=== PATIENT | female | born 1995 | race Asian ===

== ENCOUNTER 2017-08-28 21:08 | Inpatient (IN) | payer OTHER ==
[~2017-08-28] VITALS: Ht 154.9 cm; Wt 65.4 kg
[2017-08-28] MEDS ORDERED: PNV1TABL12 PO (21:16)
[2017-08-28] MEDS ORDERED: LACTATED RINGER'S 1,000 ML IV PRN (21:51)
[2017-08-28] MEDS ORDERED: CARBOPROST 250 MCG INJ IM PRN (22:00)
[2017-08-28] MEDS ORDERED: BUTORPHANOL 2 MG INJ IV PRN (22:00)
[2017-08-28] MEDS ORDERED: AMPICILLIN 2 GM/NS (PMX) 100 ML IV ONE (22:00)
[2017-08-28] MEDS ORDERED: IBUPROFEN 600 MG TAB PO PRN (22:00)
[2017-08-28] MEDS ORDERED: LIDOCAINE 1% (MPF) 30 ML INJ INJ PRN (22:00)
[2017-08-28] MEDS ORDERED: METHYLERGONOVINE 0.2 MG INJ IM PRN (22:00)
[2017-08-28] MEDS ORDERED: HYDROCODONE/APAP (5/325) TAB PO PRN (22:00)
[2017-08-28] MEDS ORDERED: OXYTOCIN 30 UNITS/LR 500 ML IV SCH (22:00)
[2017-08-28] MEDS ORDERED: OXYTOCIN 30 UNITS/LR 500 ML IV PRN (22:00)
[2017-08-28] MEDS ORDERED: MISOPROSTOL 200 MCG TAB PR PRN (22:00)
[2017-08-28 22:01] VITALS: Ht 154.9 cm; Wt 65.4 kg
[2017-08-28 22:12] VITALS: BP 127/74; PULSE 97; RESP 18
[2017-08-28] MEDS: LACTATED RINGER'S 1,000 ML IV SCH (22:57)
[2017-08-28 23:29] LABS: BASOPHILS % 0.4 % (0.0-2.0); EOSINOPHILS # 0.1 10^3/ul (0.0-0.5); EOSINOPHILS % 1.3 % (0.0-7.0); HEMATOCRIT 36.8 % (37.0-47.0); HEMOGLOBIN 12.6 g/dl (12.0-16.0); LYMPHOCYTES # 2.4 10^3/ul (0.8-2.9); LYMPHOCYTES % 25.7 % (15.0-51.0); MEAN CORPUSCULAR HEMOGLOBIN 28.9 pg (29.0-33.0); MEAN CORPUSCULAR HGB CONC 34.2 g/dl (32.0-37.0); MEAN CORPUSCULAR VOLUME 84.4 fl (82.0-101.0); MEAN PLATELET VOLUME 11.7 fl (7.4-10.4); MONOCYTE # 0.7 10^3/ul (0.3-0.9); MONOCYTES % 7.1 % (0.0-11.0); NEUTROPHIL # 6.2 10^3/ul (1.6-7.5); NEUTROPHILS % 65.1 % (39.0-77.0); PLATELET COUNT 174 10^3/UL (140-415); RED BLOOD COUNT 4.36 10^6/ul (4.20-5.40); RED CELL DISTRIBUTION WIDTH 12.5 % (11.5-14.5); WHITE BLOOD COUNT 9.5 10^3/ul (4.8-10.8)
[2017-08-29 00:08] LABS: INR 0.82; PROTIME 11.3 Sec (11.9-14.9); PT RATIO 0.9
[2017-08-29 00:09] LABS: PARTIAL THROMBOPLASTIN TIME 30.3 Sec (25.0-35.0)
[2017-08-29] MEDS: AMPICILLIN 1 GM/NS (PMX) 50 ML IV SCH ×6 (03:00→22:00)
[2017-08-29] MEDS: LACTATED RINGER'S 1,000 ML IV SCH ×4 (09:09→20:59)
[2017-08-29] MEDS ORDERED: OXYTOCIN 30 UNITS/LR 500 ML IV SCH (09:30)
[2017-08-29] MEDS ORDERED: FENTAnyl 2MCG/ML-ROPIV 0.2% 100 ML ONE (10:28)
--- NOTE | 2017-08-29 12:01 | HP ---
Date/Time of Note Date/Time of Note DATE: 08/29/17 TIME: 11:55 OB - History Hx of Present Free Text/Dictation 22 y.o at 40w4d present to triage with srom occured at 1740 on 08/28/17 VE 1cm/0// / confirmed srom uc irregular GBS pos ampicillin admitted for pitocin augmentation. Chief Complaint: srom Estimated Due Date: Aug 25, 2017 : 1 Para: 0 Spontaneous : 0 Therapeutic : 0 Care: Good Care Ultrasounds: Normal mid trimester US Obstetrical Complications: None Medical Complications: None Past Family/Social History * Past Medical, Surgical, Family and Obstetric Histories reviewed from chart. Blood Type: O+ Rubella: not immune RPR/VDRL: Negative GBS Status: Positive HBsAG: Negative OB Admission Exam Vital Signs Vital Signs Vital Signs Date Time Temp Pulse Resp B/P Pulse Ox O2 Delivery O2 Flow Rate FiO2 08/28/17 22:12 97.8 97 18 127/74 Room Air Physical Exam HEENT: WNL Heart: Rhythm Normal Lungs: Clear, Equal Abdomen: WNL Extremities: Normal Reflexes: Normal Cervical Dilatation: 1cm Effacement: Other Station: Other Membranes: Ruptured Amniotic Fluid: Thin Meconium Heart Rate: 140's Accelerations: Accelerations Present Decelerations: Variable Decelerations Varibility: Moderate Contractions on Admission: >10 Minutes Apart Intensity: Mild Last 72 hours Lab Results CBC & BMP 08/28/17 22:35 OB Assessment/Plan Reason for admission: rupture of membranes Other Assessment: IUP 40w4d Plan: Other (pitocin augmentation) RICARDO SHABAZZ MD Aug 29, 2017 12:01
[2017-08-29] MEDS ORDERED: NALOXONE (0.4 MG/ML) INJ IV PRN (16:30)
[2017-08-29] MEDS ORDERED: FENTAnyl 2MCG/ML-ROPIV 0.2% 100 ML BAG EPI SCH (16:30)
[2017-08-29] MEDS ORDERED: ACETAMINOPHEN 500 MG TAB PO STA (16:52)
[2017-08-29] MEDS ORDERED: ACETAMINOPHEN 500 MG TAB ONE (16:55)
[2017-08-29] MEDS ORDERED: GENTAMICIN 80 MG/NS (PMX) 50 ML ONE (16:55)
[2017-08-29] MEDS: GENTAMICIN 80 MG/NS (PMX) 50 ML IVPB SCH (17:08)
--- NOTE | 2017-08-29 22:43 | LDN ---
Date/Time of Note Date/Time of Note DATE: 08/29/17 TIME: 22:40 Delivery Summary normal vaginal delivery Weeks of Gestation 40w4d Placenta Delivered: Spontaneously Meconium: Thick Episiotomy: Yes Indication for episiotomy bradycardia ,second stage Perineal laceration: 0 Laceration repair: 00ch gut Anesthesia type: Local Estimated blood loss: 200 Sponge & Needle done & correct: Yes All needle counts correct: Yes Any foreign bodies felt in the: No Problems: Infant Delivery Information Sex Infant Sex: female Apgars 1 Minute: 8 5 Minute: 9 Suctioning Nose & mouth suctioned at sergio: Yes Delee suction performed: Yes Umbilical Cord Umbilical cord with: 3 Vessels Cord presentations: nuchal cord Nuchal cord present X: 1 Cord Blood was obtained: Yes Mother & Baby Disposition Disposition Mom & Baby to Maternity; Good: Yes Mom transferred to: Other Baby to NICU: No () RICARDO SHABAZZ MD Aug 29, 2017 22:43
[2017-08-29] MEDS: OXYTOCIN 30 UNITS/LR 500 ML IV SCH (23:07)
[2017-08-30] MEDS: GENTAMICIN 80 MG/NS (PMX) 50 ML IVPB SCH (01:00)
[2017-08-30 01:30] VITALS: BP 110/54; PULSE 99; RESP 20
[2017-08-30] MEDS: OXYTOCIN 30 UNITS/LR 500 ML IV SCH (02:37)
[2017-08-30] MEDS ORDERED: OXYTOCIN 30 UNITS/LR 500 ML IV PRN (03:30)
[2017-08-30] MEDS ORDERED: OXYCODONE/ASPIRIN (4.88/325) TAB PO PRN (03:30)
[2017-08-30] MEDS ORDERED: METHYLERGONOVINE 0.2 MG INJ IM PRN (03:30)
[2017-08-30] MEDS ORDERED: MISOPROSTOL 200 MCG TAB PR PRN (03:30)
[2017-08-30] MEDS ORDERED: CARBOPROST 250 MCG INJ IM PRN (03:30)
[2017-08-30] MEDS ORDERED: LANOLIN 7 GM TUBE TOP PRN (03:30)
[2017-08-30] MEDS ORDERED: ZOLPIDEM 5 MG TAB PO PRN (03:30)
[2017-08-30] MEDS ORDERED: WITCH HAZEL/GLYCERIN PAD PR PRN (03:30)
[2017-08-30] MEDS ORDERED: BENZOCAINE 20% 56 ML SPRAY TOP PRN (03:30)
[2017-08-30 04:16] VITALS: BP 108/59; PULSE 93; RESP 20
[2017-08-30] MEDS: CEFAZOLIN 2 GM/50 ML (PMX) 50 ML IVPB SCH ×3 (06:32→22:36)
[2017-08-30] MEDS: IBUPROFEN 600 MG TAB PO SCH ×3 (06:32→17:44)
[2017-08-30 08:13] VITALS: BP 117/63; PULSE 89; RESP 18
[2017-08-30] MEDS: SENNA/DOCUSATE NA (8.6MG/50MG) TAB PO SCH ×2 (08:28→22:36)
[2017-08-30 08:43] LABS: BASOPHILS % 0.2 % (0.0-2.0); EOSINOPHILS % 0.1 % (0.0-7.0); HEMATOCRIT 30.7 % (37.0-47.0); HEMOGLOBIN 10.4 g/dl (12.0-16.0); LYMPHOCYTES # 1.8 10^3/ul (0.8-2.9); LYMPHOCYTES % 10.3 % (15.0-51.0); MEAN CORPUSCULAR HEMOGLOBIN 29.5 pg (29.0-33.0); MEAN CORPUSCULAR HGB CONC 33.9 g/dl (32.0-37.0); MEAN PLATELET VOLUME 11.1 fl (7.4-10.4); MONOCYTE # 1.1 10^3/ul (0.3-0.9); MONOCYTES % 6.4 % (0.0-11.0); NEUTROPHIL # 14.2 10^3/ul (1.6-7.5); NEUTROPHILS % 82.5 % (39.0-77.0); PLATELET COUNT 146 10^3/UL (140-415); RED BLOOD COUNT 3.53 10^6/ul (4.20-5.40); RED CELL DISTRIBUTION WIDTH 12.9 % (11.5-14.5); WHITE BLOOD COUNT 17.1 10^3/ul (4.8-10.8)
[2017-08-30] MEDS: OXYCODONE/ASPIRIN (4.88/325) TAB PO PRN ×2 (13:34→16:32)
[2017-08-30 16:00] VITALS: BP 117/63; PULSE 89; RESP 18
[2017-08-30 16:10] VITALS: BP 127/73; RESP 16
--- NOTE | 2017-08-30 18:23 | PN ---
Date/Time of Note Date/Time of Note DATE: 08/30/17 TIME: 18:21 OB Subjective Subjective Subjective feeling well,nursing. WBC 17.1 Will keep antibiotic and recheck CBC in AM OB Objective Objective Objective Afebrile.Lochia,normal. HEENT: WNL Heart: Rhythm Normal Lungs: Clear Abdomen: WNL Extremities: Normal ERNESTINE HAMILTON MD Aug 30, 2017 18:23
[2017-08-30 20:21] VITALS: BP 117/60; PULSE 90; RESP 18
[2017-08-31] MEDS: IBUPROFEN 600 MG TAB PO SCH ×4 (00:01→17:22)
[2017-08-31 05:20] VITALS: BP 104/76; PULSE 69; RESP 18
[2017-08-31] MEDS: CEFAZOLIN 2 GM/50 ML (PMX) 50 ML IVPB SCH ×2 (06:24→14:22)
--- NOTE | 2017-08-31 08:13 | PN ---
Date/Time of Note Date/Time of Note DATE: 08/31/17 TIME: 08:12 OB Subjective Subjective Subjective Doing well,asymptomatic. Lochia,normal. OB Objective Objective Objective Abdomen soft.Uterus firm CBC pending. HEENT: WNL Heart: Rhythm Normal Lungs: Clear Abdomen: WNL Extremities: Normal ERNESTINE HAMILTON MD Aug 31, 2017 08:13
[2017-08-31 08:36] VITALS: BP 109/65; PULSE 82; RESP 18
[2017-08-31] MEDS: SENNA/DOCUSATE NA (8.6MG/50MG) TAB PO SCH ×2 (08:57→21:33)
[2017-08-31] MEDS ORDERED: DIPHTH/TET/ACEL PERTUSS (ADULT) 0.5 ML VIAL IM* ONE (09:00)
[2017-08-31 13:40] LABS: BASOPHILS % 0.3 % (0.0-2.0); EOSINOPHILS # 0.2 10^3/ul (0.0-0.5); EOSINOPHILS % 1.6 % (0.0-7.0); HEMATOCRIT 27.8 % (37.0-47.0); HEMOGLOBIN 9.4 g/dl (12.0-16.0); LYMPHOCYTES # 2.2 10^3/ul (0.8-2.9); LYMPHOCYTES % 17.7 % (15.0-51.0); MEAN CORPUSCULAR HEMOGLOBIN 29.7 pg (29.0-33.0); MEAN CORPUSCULAR HGB CONC 33.8 g/dl (32.0-37.0); MEAN PLATELET VOLUME 11.7 fl (7.4-10.4); MONOCYTE # 0.5 10^3/ul (0.3-0.9); MONOCYTES % 4.3 % (0.0-11.0); NEUTROPHIL # 9.3 10^3/ul (1.6-7.5); NEUTROPHILS % 75.7 % (39.0-77.0); PLATELET COUNT 158 10^3/UL (140-415); RED BLOOD COUNT 3.16 10^6/ul (4.20-5.40); RED CELL DISTRIBUTION WIDTH 13.1 % (11.5-14.5); WHITE BLOOD COUNT 12.3 10^3/ul (4.8-10.8)
[2017-08-31 16:00] VITALS: BP 135/80; PULSE 106; RESP 16; RESP 18
[2017-08-31 19:40] VITALS: BP 117/74; PULSE 89; RESP 18
[2017-09-01] MEDS: IBUPROFEN 600 MG TAB PO SCH ×3 (00:11→11:58)
[2017-09-01 03:50] VITALS: BP 113/61; PULSE 77; RESP 19
[2017-09-01 07:40] VITALS: BP 138/74; PULSE 81; RESP 19
--- NOTE | 2017-09-01 08:36 | PD.PPDC ---
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
--- NOTE | 2017-09-01 08:38 | DS ---
Date/Time of Note Date/Time of Note DATE: 09/01/17 TIME: 08:37 Obstetrical Discharge Record Final Diagnosis Final Diagnosis: Term delivered Vaginal Delivery Obstetrical Delivery: Spontaneous Condition on Discharge Physical Assessment Last Vitals: Afebrile.Normal BP Voiding: Yes Bowel Movement: Yes Breast: Soft, non-tender Fundus: Firm Calf Tenderness: No Patient Condition: Good ERNESTINE HAMILTON MD Sep 01, 2017 08:38
[2017-09-01] MEDS: SENNA/DOCUSATE NA (8.6MG/50MG) TAB PO SCH (09:15)
== END 2017-09-01 12:50 | disposition home or self-care (01) | DRG 775 ==
LOC: OBT 21:08 → L-D 21:09 → OBT 21:51 → L-D 23:42 → PP1 08-30 01:36
PROVIDERS: ADMIT Specialist; ATTEND Specialist
PROC: 10E0XZZ Delivery of Products of Conception, External Approach (ICD-10-PCS; principal; 2017-08-29)
DX: O48.0 Post-term pregnancy (principal); O99.824 Streptococcus B carrier state complicating childbirth; Z37.0 Single live birth; Z3A.40 40 weeks gestation of pregnancy; O69.81X0 Labor and delivery complicated by cord around neck, without compression, not applicable or unspecified
CPT/HCPCS: 62319; 84112; 85025; 85610; 85730; 86592; 86900; 86901; 87340; 88307; 90715; 99464; G0463; J0290; J0690; J1580; J2590; J3010; J7120

== ENCOUNTER 2017-12-12 18:18 | Emergency (ER) | END 2017-12-12 18:45 | disposition home or self-care (01) ==

== ENCOUNTER 2017-12-22 07:18 | Emergency (ER) | END 2017-12-22 08:03 | disposition home or self-care (01) ==